=== PATIENT | male | born 1985 | race Caucasian/White ===

== ENCOUNTER 2016-11-07 09:01 | Outpatient (CLI) | payer OTHER ==
[2015-01-28 07:35] VITALS: BMI 35.9
[2016-11-07 12:42] LABS: FLU INTERNAL QC INTERNAL QC VALID; RAPID FLU A NEGATIVE (NEGATIVE); RAPID FLU B NEGATIVE (NEGATIVE)
== END 2016-11-07 09:02 | disposition home or self-care (01) ==
LOC: LAB 09:01
PROVIDERS: ATTEND Nurse Practitioner Family
DX: J02.9 Acute pharyngitis, unspecified (principal); R52 Pain, unspecified
CPT/HCPCS: 87651; 87804; 87880

== ENCOUNTER 2018-06-25 16:28 | Outpatient (CLI) ==
[2015-01-28 07:35] VITALS: BMI 35.9
--- NOTE | 2018-06-25 17:07 | DI ---
EXAM: Six views of the bilateral temporal mandibular joints. History: Pain of jaw, right-sided jaw pain Findings: Evaluation is difficult due to overlapping osseous and soft tissue structures. No fractur es are seen. No distinct air-fluid levels are seen within the sinuses. The movement of the mandibul ar condyle on the left with open and closed mouth views appears more pronounced than on the right brooke e. Impression: No obvious fractures are seen. If pain persists, consider further evaluation with an MR I of the temporomandibular joints.
== END 2018-06-25 16:29 | disposition home or self-care (01) ==
LOC: RAD 16:28
PROVIDERS: ATTEND Emergency Medicine
DX: S03.41XS Sprain of jaw, right side, sequela (principal)